=== PATIENT | male | born 1945 | race Caucasian/White ===

== ENCOUNTER 2017-03-16 19:05 | Inpatient (IN) | payer MEDICARE, OTHER, MEDICAID ==
[2017-03-16 20:10] LABS: HEMOGLOBIN 10.8 gm/dL (12-16); MEAN CELL VOLUME 89.3 fl (80-99); MEAN CORPUSCULAR HEMOGLOBIN 29.5 pg (27.0-31.0); MEAN CORPUSCULAR HGB CONC 33.1 pg (28.0-36.0); MEAN PLATELET VOLUME 7.4 fl; RED BLOOD COUNT 3.66 Mil/cmm (3.80-5.80); RED CELL DISTRIBUTION WIDTH 16.1 % (11.5-20.0)
[2017-03-16 20:20] LABS: WHITE BLOOD COUNT 69.7 Th/cmm (4.8-10.8)
[2017-03-16 20:21] LABS: HEMATOCRIT 32.7 % (41.0-60); PLATELET COUNT 128 Th/cmm (150-400)
[2017-03-16 20:22] LABS: ANION GAP 12.4 (7.0-16.0); BUN - UREA NITROGEN 13 mg/dL (7-25); CALCIUM SERUM 8.9 mg/dL (8.6-10.3); CARBON DIOXIDE 24.1 mEq/L (21.0-31.0); CHLORIDE 98 mEq/L (98-107); CREATININE - SERUM 0.7 mg/dL (0.7-1.3); GFR AFRICAN-AMERICAN > 60.0 ml/min (>90); GFR NON AFRICAN-AMERICAN > 60.0 ml/min; GLUCOSE 188 mg/dL (70-105); POTASSIUM SERUM 4.5 mEq/L (3.5-5.1); SODIUM SERUM 130 mEq/L (136-145)
[2017-03-16 20:29] LABS: URINE BILIRUBIN NEGATIVE (NEGATIVE); URINE BLOOD MODERATE (NEGATIVE); URINE GLUCOSE (UA) NEGATIVE (NEGATIVE); URINE KETONE TRACE mg/dL (NEGATIVE); URINE LEUKOCYTE ESTERASE NEGATIVE (NEGATIVE); URINE MICROSCOPIC INDICATED? YES; URINE NITRATE NEGATIVE (NEGATIVE); URINE PROTEIN TRACE mg/dL (NEGATIVE); URINE SOURCE MIDSTREAM; URINE UROBILINOGEN 0.2 E.U./dL (0.2 - 1.0)
--- NOTE | 2017-03-16 20:33 | ED Physician Chart ---
ED Chief Complaint/HPI - Patient Information Date Seen:: 03/16/17 Time Seen:: 19:10 Chief Complaint:: Agitation History of Present Illness:: onset x 3 days of agitation and aggressive behavior; no report of trauma, H/As, S/T, neck pain, C/P, SOB, Abd.Pain, A/N/V/D/C, fever, chills, urinary s/s, or SIs Allergies:: Allergies Allergy/AdvReac Type Severity Reaction Status Date / Time No Known Allergies Allergy Verified 03/16/17 20:01 Vitals:: Vital Signs - 8 hr 03/16/17 19:10 Temp 98.0 F HR 67 RR 18 BP 137/45 O2 Sat % 97 Historian:: Patient, EMS Review:: Nurse's Note Reviewed, Old Chart Reviewed, EMS run form Reviewed ED Review of Systems - Review of Systems General/Constitutional: No fever, No chills, No weight loss, No weakness, No diaphoresis, No edema, No loss of appetite Skin: No skin lesions, No rash, No bruising Head: No headache, No light-headedness Eyes: No loss of vision, No pain, No diplopia ENT: No earache, No nasal drainage, No sore throat, No tinnitus Neck: No neck pain, No swelling, No thyromegaly, No stiffness, No mass noted Cardio Vascular: No chest pain, No palpitations, No PND, No orthopnea, No edema Pulmonary: No SOB, No cough, No sputum, No wheezing GI: No nausea, No vomiting, No diarrhea, No pain, No melena, No hematochezia, No constipation, No hematemesis G/U: No dysuria, No frequency, No hematuria, No nacturia Musculoskeletal: No bone or joint pain, No back pain, No muscle pain Endocrine: No polyuria, No polydipsia Psychiatric: Prior psych history, Depression, No anxiety, No suicidal ideation, No homicidal ideation, Auditory hallucination, No visual hallucination Hematopoietic: No bruising, No lymphadenopathy Allergic/Immuno: No urticaria, No angioedema Neurological: No syncope, No focal symptoms, No weakness, No paresthesia, No headache, No seizure, No dizziness, No confusion, No vertigo ED Past Medical History - Past Medical History Obtainable: Yes Past Medical History: HTN, DM, Other (MS; Leukemia; Parkinson's Disease) Family History: Diabetes Melitus, HTN, Cancer Social History: Non Smoker, No Alcohol, No Drug Use, Single, Care Facility Surgical History: None Psychiatricy History: Depression, Schizophrenia Medication: Reviewed Family Medical History - Family Member Father History Unknown: Yes Ethnicity: Unknown Living Status: Unknown Hx Family Cancer: (Unknown) Hx Family Coronary Artery Disease: (Unknown) Hx Family Congestive Heart Failure: (Unknown) Hx Family Hypertension: (Unknown) Hx Family Stroke: (Unknown) Hx Family Diabetes: (Unknown) Hx Family Seizures: (Unknown) Hx Family Dementia: (Unknown) Hx Family AIDS: (Unknown) Hx Family COPD: (Unknown) Hx Family Hepatitis: (Unknown) Hx Family Psychiatric Problems: (Unknown) Hx Family Tuberculosis: (Unknown) ED Physical Exam - Physical Examination General/Constitutional: Awake, Well-developed, well-nourished, Alert, No distress, GCS 15, Non-toxic appearing, Ambulatory Head: Atraumatic Eyes: Lids, conjuctiva normal, PERRL, EOMI Skin: Nl inspection, No rash, No skin lesions, No ecchymosis, Well hydrated, No lymphadenopathy ENMT: External ears, nose nl, TM canals nl, Nasal exam nl, Lips, teeth, gums nl , Oropharynx nl, Tonsils nl Neck: Nontender, Full ROM w/o pain, No JVD, No nuchal rigidity, No bruit, No mass, No stridor Respiratory: Nl effort/Exclusion, Clear to Auscultation, No Wheeze/Rhonchi/Rales Cardio Vascular: RRR, No murmur, gallop, rubs, NL S1 S2, Carotid/Femoral/Distal pulses equal bilaterally GI: No tenderness/rebounding/guarding, No organomegaly, No hernia, Normal BS's, Nondistended, No mass/bruits, No McBurney tenderness : No CVA tenderness Extremities: No tenderness or effusion, Full ROM, normal strength in all extremities, No edema, Normal digits & nails Neuro/Psych: Alert/oriented, DTR's symmetric, Normal sensory exam, Normal motor strength, Judgement/insight normal, Mood normal, Normal gait, No focal deficits Other Neuro/Psych comments:: + Psychomotor Agitation; Mood/Affect: Stable; no SIs Misc: Normal back, No paraspinal tenderness ED Labs/Radiology/EKG Results - Lab Results Results: Laboratory Tests 03/16/17 19:59 WBC 69.7 H* D RBC 3.66 L Hgb 10.8 L Hct 32.7 L D MCV 89.3 MCH 29.5 MCHC Differential 33.1 RDW 16.1 Plt Count 128 L D MPV 7.4 Comments:: WBC: 69.7 due to Leukemia; H/H: + Anemia; - EKG Interpretations EKG Time:: 19:50 Rate & Rhythm: 67; NSR Comments:: LBBB; non-specific st-t changes ED Septic Shock - . Is Septic Shock (SBP<90, OR Lactate>4 mmol\L) present?: No - <6hrs of presentation: Vital Signs: Vital Signs - 8 hr 03/16/17 19:10 Temp 98.0 F HR 67 RR 18 BP 137/45 O2 Sat % 97 ED Reassessment (Disposition) - Reassessment Reassessment Condition:: Improved - Diagnosis Diagnosis:: Leukemia; Anemia; Schizophrenia; Depression; Bipolar Disorder; Agitation - Aftercare/Follow up Instructions Aftercare/Follow-Up Instructions:: Counseled pt regarding lab results/diagnosis & need follow up, Counseled pt & family regarding lab results/diagnosis & need follow up - Patient Disposition Discharge/Transfer:: Acute Care w/in this hosp Admitted to:: [facility] Condition at Disposition:: Stable, Improved
[2017-03-16 20:38] LABS: URINE CLARITY CLEAR (CLEAR); URINE COLOR YELLOW
[2017-03-16 20:39] LABS: URINE BACTERIA NONE SEEN /hpf (NONE SEEN); URINE EPITHELIAL CELLS NONE SEEN /lpf (FEW); URINE WBC 0-2 /hpf (0-5)
[2017-03-16 20:40] LABS: BAND NEUTROPHILE 0 % (0-10); NEUTROPHILS 6 % (40-80); TOTAL CELLS COUNTED 100
[2017-03-16 20:41] LABS: BASOPHIL 0 % (0-3); EOSINOPHIL 2 % (0-5); LYMPHOCYTE 90 % (20-50); MONOCYTE 2 % (2-10); PLATELET ESTIMATE ADEQUATE (NORMAL); PLATELET MORPHOLOGY NORMAL (NORMAL); POIKILOCYTOSIS 1+
[2017-03-16 20:42] LABS: ACANTHROCYTES 1+; BURR CELLS 1+; SCHISTOCYTES 1+
[2017-03-16 20:48] LABS: AMPHETAMINE URINE NEGATIVE (NEGATIVE); BARBITURATES URINE NEGATIVE (NEGATIVE); BENZODIAZEPINES QUAL URINE NEGATIVE (NEGATIVE); CANNABINOID THC NEGATIVE (NEGATIVE); COCAINE METABOLITE QUAL URINE NEGATIVE (NEGATIVE); METHADONE URINE NEGATIVE (NEGATIVE); METHAMPHETAMINES QUAL URINE NEGATIVE (NEGATIVE); OPIATES (MORPHINE) QUAL. URINE NEGATIVE (NEGATIVE); PHENCYCLIDINE (PCP) URINE NEGATIVE (NEGATIVE); TRICYCLICS (TCA) QUAL. URINE NEGATIVE (NEGATIVE)
[2017-03-16 21:26] LABS: A1C % 9.3 % (4.0-6.0)
[2017-03-17 00:17] VITALS: BP 148/65
[2017-03-17] MEDS ORDERED: Maalox 30 mL Cup PO PRN (00:20)
[2017-03-17] MEDS ORDERED: Magnesium Hydroxide (MOM) 30 mL UDC PO PRN (00:20)
[2017-03-17] MEDS: Atorvastatin Calcium 10 MG TAB PO SCH (09:39)
[2017-03-17] MEDS: Benztropine 1 MG TAB PO SCH (09:40)
--- NOTE | 2017-03-17 16:09 | History & Physical ---
ADMIT DATE: 03/16/2017 INTERNAL MEDICINE CONSULTATION The patient is a 71-year-old male admitted to [facility] unit. PAST MEDICAL HISTORY: Significant for hypertension, CHF, coronary artery disease, history of CVA, peptic ulcer disease ____ arthritis, seizure disorder and psychosis. SOCIAL HISTORY: No documented smoking or alcohol abuse. FAMILY HISTORY: Not available. REVIEW OF SYSTEMS: The patient is very depressed and confused. Has had no recent seizure activity, no fever. PHYSICAL EXAMINATION: GENERAL: Average male, in no obvious respiratory distress. VITAL SIGNS: Include a blood pressure of 140/80, heart 80 and respiration rate of 18. SKIN: Show no obvious cellulitis. HEENT: Normal conjunctivae. NECK: Supple. LUNGS: Clear. HEART: First and second present. ABDOMEN: Soft, minimal epigastric tenderness. Bowel sounds appeared good. EXTREMITIES: Show arthritis. NEUROLOGIC: The patient is awake. LABORATORY DATA: Include white count 69.7, hemoglobin 10.8, hematocrit 32.7 and platelet count of 128. Sodium 130, potassium 4.5, chloride 98, bicarbonate 24.1, BUN 13 and creatinine 0.7. Glucose of 188. Hemoglobin A1c of 9.3. ADMITTING DIAGNOSES: Include leukocytosis, rule out underlying infection versus leukemia; hypertension; congestive heart failure; coronary artery disease; history of cerebrovascular accident; peptic ulcer disease; arthritis; seizure disorder; psychosis and diabetes mellitus. LABORATORY DATA: Will have a repeat stat CBC. CURRENT MEDICINES: Include Coreg, Plavix, Depakote, Aricept, Pepcid, Keppra, Ativan, milk of magnesia and Namenda. The patient is on Glucophage, Nitrostat p.r.n., Protonix, Lyrica and Ambien. JOB# [id number]
--- NOTE | 2017-03-17 22:14 | Psychosocial Evaluation ---
DATE OF SERVICE: 03/16/2017 IDENTIFYING DATA: The patient is a 71-year-old male, resident of [facility]. Information is obtained by directly interviewing the patient as well as reviewing the admission papers and they are reliable. JUSTIFICATION OF HOSPITALIZATION: The patient is admitted here on a voluntary basis in view of his acute depression. CHIEF COMPLAINT: "I am feeling very depressed. I do not know what to do." HISTORY OF PRESENT ILLNESS: This is one of multiple psychiatric hospitalizations for this patient who was hospitalized under my care in 2014. The patient has been diagnosed to have schizoaffective disorder and currently at [facility], but the patient has been feeling acutely depressed and is feeling helpless and hopeless and is stating that the place is not as sanitary and he does not want to go there and the patient has been getting easily upset and getting agitated and hence he has been referred over here for stabilization. PAST PSYCHIATRIC HISTORY: Please refer to the above. PHYSICAL EXAMINATION: Requested to be done by Dr. Celis. SUBSTANCE ABUSE HISTORY: None. PHYSICAL OR SEXUAL ABUSE HISTORY: None. SOCIAL HISTORY: The patient is a resident of [facility]. The patient is reporting that he used to work at [employer] and he lost his son in 1998 because of a motor vehicle accident and he has no one left. The patient is feeling helpless and hopeless and is stating that he is going to be 72 and he cannot be moved to [address]. The patient at this time is on Remeron and Depakote and on Seroquel. The patient is reported to have been compliant with the medication. The patient is getting Depakote 500 mg 3 times a day and the Depakote level is noted to be high at 122 and hence it is going to be decreased. The patient is also getting the Namenda and Aricept. MENTAL STATUS EXAMINATION: The patient is a 71-year-old, looking his stated age, thin built, superficially cooperative. Eye contact is poor. Mood is depressed. Affect is constricted. The patient denies any command hallucinations, but the patient has paranoia. Insight and judgment at this time are impaired. Impulse control is noted to be poor. The patient has been having difficult time to cope with the stress. The patient is not presenting with any threats to harm self or others, but the patient is having difficult time to cope with the stress. DIAGNOSTIC IMPRESSION: AXIS I: Schizoaffective disorder. AXIS II: None. AXIS III: As per Dr. Celis. IMMEDIATE TREATMENT PLAN: The patient is going to be observed on the inpatient unit and provided with supportive psychotherapy. The patient is going to be continued on the Depakote, Namenda, Aricept, and mirtazapine 15 mg at bedtime and the antidepressant is going to be slowly adjusted. ESTIMATED LENGTH OF STAY: Three to five days. DISCHARGE CRITERIA: When he is no longer a threat to self or others and be able to cope up with the stress. [facility]# [id number]
[2017-03-18] MEDS: Atorvastatin Calcium 10 MG TAB PO SCH (09:00)
[2017-03-18] MEDS: Benztropine 1 MG TAB PO SCH (09:02)
[2017-03-18] MEDS: Pantoprazole 40 mg EC Tab PO SCH (11:55)
--- NOTE | 2017-03-18 16:42 | Progress Notes ---
DATE: 03/18/2017 SUBJECTIVE: Staff was spoken to. The patient is interviewed. Mood is noted to be irritable. Affect is constricted. Insight and judgment at this time are noted to be still impaired. Impulse control is noted to be limited. The patient has been having difficult time to cope with the stress. The patient is still insisting that he would be better off rather than be alive. The patient has been displaying very poor coping skills. In view of this one, it is decided to add 2 mg of the Abilify as an antidepressant and continue the patient with Remeron and follow him up with supportive therapy. ASSESSMENT: The patient is still depressed and suicidal. PLAN: To continue the patient with the supportive therapy and follow up. [facility]# [id number]
--- NOTE | 2017-03-19 07:11 | Consultation ---
DATE OF CONSULTATION: 03/18/2017 HEMATOLOGY ONCOLOGY CONSULTATION REFERRED BY: Dr. Celis. REASON FOR CONSULTATION: Leukemia. HISTORY OF PRESENT ILLNESS: The patient is a 71-year-old male, who was seen in the [facility] unit. The patient was found to have persistent elevation of the WBC count, which was predominantly lymphocytes. Therefore, I was asked to evaluate. PAST MEDICAL HISTORY: Hypertension, coronary artery disease, CVA, peptic ulcer disease, seizure disorder, psychosis. MEDICATIONS: Reviewed. SOCIAL HISTORY: No smoking or drinking. PHYSICAL EXAMINATION: GENERAL: The patient is awake, not in distress. VITAL SIGNS: Stable, somewhat anxious. HEENT: Atraumatic. NECK: Supple. CHEST: Clear. ABDOMEN: Soft. No organomegaly. EXTREMITIES: No edema. No peripheral lymphadenopathy. LABORATORY DATA: White count 69,700, platelets 128, hemoglobin 10.8, lymphocytes 90%, creatinine 0.7. ASSESSMENT AND RECOMMENDATIONS: Leukocytosis, predominantly lymphocytosis; it dates back 2014. This most likely chronic lymphocytic leukemia. I will obtain leukemia lymphoma flow cytometry panel and if confirmed, I will obtain FISH panel for CLL prognostic panel. No intervention is required at this time. Based on the result, the patient further workup with a CT scan will be outlined. Thank you, Dr. Celis, for the opportunity to participate in the care of this interesting case JOB# [id number]
[2017-03-19] MEDS: Benztropine 1 MG TAB PO SCH (09:21)
[2017-03-19] MEDS: Atorvastatin Calcium 10 MG TAB PO SCH (09:21)
[2017-03-19] MEDS: Pantoprazole 40 mg EC Tab PO SCH (09:26)
[2017-03-19] MEDS ORDERED: Albuterol Nebulizer 2.5mg/3mL HHN PRN (11:00)
--- NOTE | 2017-03-20 07:55 | Consultation ---
DATE OF CONSULTATION: 03/18/2017 REQUESTING PHYSICIAN: Karla Coffey M.D. CONSULTING PSYCHOLOGIST: Johnny Spivey, Ph.D. TYPE OF CONSULTATION: Psychology Evaluation. HISTORY OF PRESENT ILLNESS: The following is by review of the medical record as well as by patient's self report. According to record review, the patient is a 71-year-old male who is a resident of [facility]. The patient is being admitted on a voluntary basis for acute depression. The patient has been seen in the past and had a previous hospitalization in 2014. The patient has a history of schizoaffective disorder. Upon interview, the patient states that he is not experiencing suicidal ideation with any plan or intention. However, the patient admits that he feels very depressed and helpless as well as hopeless. The patient states that he is unhappy at his placement. The patient seems to be getting easily upset when discussing his placement with this provider but the patient seems to be motivated for treatment. PAST PSYCHIATRIC HISTORY: History of schizoaffective disorder, depressed. PAST MEDICAL HISTORY: Please see history and physical by Dr. Celis. SUBSTANCE ABUSE HISTORY: The patient denied any history. The record indicates no history. MEDICATIONS: Please see medication reconciliation sheet. PSYCHOSOCIAL HISTORY: The patient states that he is a resident at [facility]. The patient states he used to work at [employer]. He reports that he lost his son in 1998 due to a motor vehicle accident and has no other family. The patient states that he is a high school graduate with some college. The patient states that he is Religious. The patient did not answer any other questions regarding family history. The patient denied any abuse history or legal problems. The patient states that he is seeking transfer to another custodial facility because he feels his current placement is unsanitary. MENTAL STATUS EXAMINATION: The patient appears to be his stated age. The patient's attitude is cooperative. Eye contact is poor. Speech is spontaneous. Mood is severely depressed. Affect is sullen. Thought process seems to be depressogenic. The patient did report some anxiety. The patient denies any auditory or visual hallucinations; however, the patient has some paranoid ideation and suspiciousness. The patient's behavior has been redirectable on the unit according to staff here. Impulse control is fair to poor. Concentration is fair to poor. The patient was able to perform serial 3 subtractions with one mistake but was unable to correct that mistake. The patient verbalized hopelessness and helplessness as well as anhedonia. The patient did not participate in the memory evaluation. Immediate memory seems to be intact. Short-term and long-term memory need further evaluation, but seemed to be grossly intact. Sensorium is alert and oriented to person and place, but not date or time. The patient answered 1/3 interpretation of proverbs which was superficial, but somewhat logical. Insight is poor. Judgment is compromised. DIAGNOSTIC IMPRESSION: AXIS I: History of schizoaffective disorder, depressed. AXIS II: Deferred. AXIS III: Please see history and physical per Dr. Celis. TREATMENT PLAN: The patient has been seen by Dr. Coffey for psychiatric evaluation and for the management of the patient's psychotropic medications. We will provide supportive psychotherapy as well as motivational enhancement for the patient to become compliant with all aspects of his care and treatment plan. We will provide cognitive behavioral therapy to reduce the patient's depression. The patient is continued on Depakote, Namenda, Aricept, and mirtazapine 15 mg at bedtime according to Dr. Coffey. We will provide coping strategies for phase of life issues. We will provide bereavement therapy with respect to the patient's loss of his son 18 years ago. The patient will be monitored closely. We will provide stress management as well as frustration tolerance, so that the patient can demonstrate improved ability to cope with stress. network services project manager will provide discussion regarding options for the patient's return to his custodial facility or possibly another placement. Thank you, Dr. Coffey for this consult and the opportunity to participate with you and your patient's care. JOB# [id number] DAVE
[2017-03-20] MEDS: Atorvastatin Calcium 10 MG TAB PO SCH (08:16)
[2017-03-20] MEDS: Benztropine 1 MG TAB PO SCH (08:16)
[2017-03-20] MEDS: Pantoprazole 40 mg EC Tab PO SCH (09:51)
--- NOTE | 2017-03-20 16:40 | General Progress Note ---
Subjective - Review of Systems Service Date: 03/20/17 Objective - Results Result Diagrams: 03/16/17 19:59 03/16/17 19:59 Recent Labs: Laboratory Last Values WBC 69.7 Th/cmm (4.8-10.8) H* D 03/16/17 19:59 RBC 3.66 Mil/cmm (3.80-5.80) L 03/16/17 19:59 Hgb 10.8 gm/dL (12-16) L 03/16/17 19:59 Hct 32.7 % (41.0-60) L D 03/16/17 19:59 MCV 89.3 fl (80-99) 03/16/17 19:59 MCH 29.5 pg (27.0-31.0) 03/16/17 19:59 MCHC Differential 33.1 pg (28.0-36.0) 03/16/17 19:59 RDW 16.1 % (11.5-20.0) 03/16/17 19:59 Plt Count 128 Th/cmm (150-400) L D 03/16/17 19:59 MPV 7.4 fl 03/16/17 19:59 Band Neutrophils % 0 % (0-10) 03/16/17 19:59 Neutrophils (Manual) 6 % (40-80) L 03/16/17 19:59 Lymphocytes 90 % (20-50) H 03/16/17 19:59 Monocytes 2 % (2-10) 03/16/17 19:59 Eosinophils 2 % (0-5) 03/16/17 19:59 Basophils 0 % (0-3) 03/16/17 19:59 Platelet Estimate ADEQUATE (NORMAL) 03/16/17 19:59 Platelet Morphology NORMAL (NORMAL) 03/16/17 19:59 Poikilocytosis 1+ 03/16/17 19:59 [place] Cells 1+ 03/16/17 19:59 Acanthocytes (Spur) 1+ 03/16/17 19:59 Schistocytes 1+ 03/16/17 19:59 RBC Morph Micro Appear ABNORMAL (NORMAL) 03/16/17 19:59 Sodium 130 mEq/L (136-145) L 03/16/17 19:59 Potassium 4.5 mEq/L (3.5-5.1) 03/16/17 19:59 Chloride 98 mEq/L (98-107) 03/16/17 19:59 Carbon Dioxide 24.1 mEq/L (21.0-31.0) 03/16/17 19:59 Anion Gap 12.4 (7.0-16.0) 03/16/17 19:59 BUN 13 mg/dL (7-25) 03/16/17 19:59 Creatinine 0.7 mg/dL (0.7-1.3) 03/16/17 19:59 Est GFR ( Amer) > 60.0 ml/min (>90) 03/16/17 19:59 Est GFR (Non-Af Amer) > 60.0 ml/min 03/16/17 19:59 BUN/Creatinine Ratio 18.6 03/16/17 19:59 Glucose 188 mg/dL (70-105) H 03/16/17 19:59 Hemoglobin A1c % 9.3 % (4.0-6.0) H 03/16/17 19:59 Whole Bld Lactic Acid 2.19 mmol/L (0.60-1.99) H* 03/16/17 22:50 Uric Acid 4.6 mg/dL (4.4-7.6) 03/18/17 16:47 Calcium 8.9 mg/dL (8.6-10.3) 03/16/17 19:59 TSH 2.98 uIU/ml (0.34-5.60) 03/16/17 19:59 Urine Source MIDSTREAM 03/16/17 19:25 Urine Color YELLOW 03/16/17 19:25 Urine Clarity CLEAR (CLEAR) 03/16/17 19:25 Urine pH 6.0 (4.6 - 8.0) 03/16/17 19:25 Ur Specific [place] >= 1.030 (1.005-1.030) 03/16/17 19:25 Urine Protein TRACE mg/dL (NEGATIVE) 03/16/17 19:25 Urine Glucose (UA) NEGATIVE mg/dL (NEGATIVE) 03/16/17 19:25 Urine Ketones TRACE mg/dL (NEGATIVE) 03/16/17 19:25 Urine Blood MODERATE (NEGATIVE) H 03/16/17 19:25 Urine Nitrate NEGATIVE (NEGATIVE) 03/16/17 19:25 Urine Bilirubin NEGATIVE (NEGATIVE) 03/16/17 19:25 Urine Urobilinogen 0.2 E.U./dL (0.2 - 1.0) 03/16/17 19:25 Ur Leukocyte Esterase NEGATIVE (NEGATIVE) 03/16/17 19:25 Urine RBC 5-10 /hpf (0-5) H 03/16/17 19:25 Urine WBC 0-2 /hpf (0-5) 03/16/17 19:25 Ur Epithelial Cells NONE SEEN /lpf (FEW) 03/16/17 19:25 Urine Bacteria NONE SEEN /hpf (NONE SEEN) 03/16/17 19:25 Urine Opiates Screen NEGATIVE (NEGATIVE) 03/16/17 19:25 Urine Methadone Screen NEGATIVE (NEGATIVE) 03/16/17 19:25 Ur Barbiturates Screen NEGATIVE (NEGATIVE) 03/16/17 19:25 Valproic Acid 75.1 ug/mL (50.0-100.0) 03/18/17 16:47 Ur Tricyclics Screen NEGATIVE (NEGATIVE) 03/16/17 19:25 Levetiracetam 26.1 ug/mL (10.0-40.0) 03/16/17 19:59 Ur Phencyclidine Scrn NEGATIVE (NEGATIVE) 03/16/17 19:25 Amphetamines Screen NEGATIVE (NEGATIVE) 03/16/17 19:25 U Methamphetamines Scrn NEGATIVE (NEGATIVE) 03/16/17 19:25 U Benzodiazepines Scrn NEGATIVE (NEGATIVE) 03/16/17 19:25 U Cocaine Metab Screen NEGATIVE (NEGATIVE) 03/16/17 19:25 U Cannabinoids Screen NEGATIVE (NEGATIVE) 03/16/17 19:25 - Physical Exam Vitals and I&O: Vital Signs Temp 97.2 F 03/20/17 16:27 Pulse 62 03/20/17 16:27 Resp 18 03/20/17 16:27 BP 113/61 03/20/17 16:27 Pulse Ox 98 03/20/17 16:27 Intake & Output 03/19/17 03/20/17 03/20/17 18:59 06:59 18:59 Intake Total 1000 120 240 Balance 1000 120 240 Intake: Oral 1000 120 240 Other: # Voids 3 3 1 Stool Characteristics Soft Formed Active Medications: Current Medications Acetaminophen (Tylenol) 650 mg PO Q4HR PRN PRN Reason: Mild Pain / Temp above 100 Stop: 05/16/17 00:19 Al Hydrox/Mg Hydrox/Simethicone (Maalox) 30 ml PO Q4HR PRN PRN Reason: GI DISTRESS Stop: 05/16/17 00:19 Albuterol Sulfate (Albuterol 2.5mg/3ml Neb Ud) 2.5 mg HHN Q4HRT PRN PRN Reason: Wheezing Stop: 05/18/17 10:59 Aripiprazole (Abilify) 2 mg PO DAILY [facility] PRN Reason: Protocol Stop: 05/17/17 08:59 Last Admin: 03/20/17 08:14 Dose: 2 mg Aspirin (Ecotrin) 81 mg PO DAILY [facility] Stop: 05/16/17 08:59 Last Admin: 03/20/17 08:14 Dose: 81 mg Atorvastatin Calcium (Lipitor) 40 mg PO DAILY [facility] Stop: 05/16/17 08:59 Last Admin: 03/20/17 08:16 Dose: 40 mg Benazepril HCl (Lotensin) 5 mg PO DAILY [facility] Stop: 05/16/17 08:59 Last Admin: 03/20/17 08:15 Dose: 5 mg Benztropine Mesylate (Cogentin) 2 mg PO DAILY [facility] Stop: 05/16/17 08:59 Last Admin: 03/20/17 08:16 Dose: 2 mg Carvedilol (Coreg) 6.25 mg PO BID [facility] Stop: 05/16/17 08:59 Last Admin: 03/20/17 08:14 Dose: 6.25 mg Clopidogrel Bisulfate (Plavix) 75 mg PO DAILY [facility] Stop: 05/16/17 08:59 Last Admin: 03/20/17 08:30 Dose: 75 mg Divalproex Sodium (Depakote Dr) 500 mg PO BID [facility] PRN Reason: Protocol Stop: 05/16/17 16:59 Last Admin: 03/20/17 08:15 Dose: 500 mg Donepezil HCl (Aricept) 10 mg PO HS [facility] Stop: 05/16/17 20:59 Last Admin: 03/19/17 21:05 Dose: 10 mg Famotidine (Pepcid) 20 mg PO BID [facility] Stop: 05/16/17 08:59 Last Admin: 03/20/17 09:50 Dose: 20 mg Levetiracetam (Keppra) 500 mg PO BID [facility] Stop: 05/16/17 08:59 Last Admin: 03/20/17 09:49 Dose: 500 mg Lorazepam (Ativan) 0.5 mg PO Q4HR PRN; Protocol PRN Reason: Anxiety Stop: 04/16/17 00:19 Magnesium Hydroxide (Milk Of Magnesia) 30 ml PO HS PRN PRN Reason: Constipation Memantine (Namenda) 10 mg PO DAILY [facility] Stop: 05/16/17 08:59 Last Admin: 03/20/17 09:49 Dose: 10 mg Metformin HCl (Glucophage) 850 mg PO BIDWM [facility] Stop: 05/16/17 07:59 Last Admin: 03/20/17 08:20 Dose: 850 mg Mirtazapine (Remeron) 15 mg PO HS [facility] PRN Reason: Protocol Stop: 05/16/17 20:59 Last Admin: 03/19/17 21:05 Dose: 15 mg Miscellaneous (Pimavanserin Tartrate [Nuplazid]) 17 mg PO DAILY [facility] Stop: 05/16/17 08:59 Miscellaneous (Umeclidinium Brm/Vilanterol Tr [Anoro Ellipta 62.5-25 Mcg Inh]) 1 puff IH DAILY [facility] Stop: 05/16/17 08:59 Nitroglycerin (Nitrostat) 0.4 mg SL Q5MIN PRN PRN Reason: Chest Pain Stop: 05/16/17 00:24 Ondansetron HCl (Zofran Odt) 4 mg PO Q6H PRN PRN Reason: Nausea / Vomiting Pantoprazole Sodium (Protonix) 40 mg PO DAILY [facility] Stop: 05/17/17 11:59 Last Admin: 03/20/17 09:51 Dose: 40 mg Pregabalin (Lyrica) 75 mg PO BID [facility] Stop: 05/16/17 08:59 Last Admin: 03/20/17 09:49 Dose: 75 mg Zolpidem Tartrate (Ambien) 5 mg PO HS PRN PRN Reason: Insomnia Stop: 05/16/17 00:19 Last Admin: 03/19/17 21:09 Dose: 5 mg - Procedures Procedures: Procedures Procedure Code Date OTHER GROUP THERAPY 94.44 05/31/14 RECREATIONAL THERAPY 93.81 03/08/07 Assessment/Plan - Problem List Patient Problems: All Active Problems Agitation (Acute) R45.1 Depressive disorder (Acute) F32.9 Diabetes (Acute) E11.9 Hypertension (Acute) I10 Schizoaffective disorder (Acute) F25.9 - Assessment Assessment: * Likely chronic lymphocytic leukemia Follow Flowcytometry report Monitor cbc Nutritional Asmnt/Malnutr-PDOC - Dietary Evaluation Malnutrition Findings (Please click <Entered> for more info): Nutritional Asmnt/Malnutrition Start: 03/17/17 13: 13 Text: Status: Complete Freq: Document 03/17/17 13:13 [facility] (Rec: 03/17/17 13:31 [facility] [email or web address]) Nutritional Asmnt/Malnutrition Patient General Information Nutritional Screening High Risk Diagnosis leukemia, anemia, schizophrenia, depression, bipolar, agitaion Pertinent Medical Hx/Surgical Hx HTN, DM, Leukemia, parkinson's disease, depression , schizophrenia Subjective Information Pt seen sitting on bed working on lunch. Pt stated good appetite, like the food. Current Diet Order/ Nutrition Support mech soft chopped, MARCIAL, CCHO Pertinent Medications glucophage, remeron, protonix Pertinent Labs 03/16 Na 130, K 4.5, Cl 98, BUN 13, Cr 0.7, Glucose 188, A1c 9.3 Nutritional Hx/Data Height 1.78 m Height (Calculated Centimeters) 177.8 Current Weight (lbs) 77.111 kg Weight (Calculated Kilograms) 77.1 Weight (Calculated Grams) 03936.7 [place] Body Weight 166 % [place] Body Weight 102 Body Mass Index (BMI) 24.3 Weight Status Approriate GI Symptoms GI Symptoms None Last BM 03/17 Difficult in: None Skin Integrity/Comment: intact Estimated Nutritional Goals BEE in Kcals: Using Current wt Calories/Kcals/Kg 25-30 Kcals Calculated 2525-1118 Protein: Using Current wt Protein g/k Protein Calculated 77 Fluid: ml 1925-2310ml (1ml/kcal) Nutritional Problem 1. Problem Problem altered nutrition related lab values Etiology hx of DM Signs/Symptoms: Glucose 188, A1c 9.3 Malnutrition Alert Protein-Calorie Malnutrition N/A Is there a minimum of two criteria No selected? Query Text:Check all the applicable criteria. A minimum of two criteria are recommended for diagnosis of either severe or non-severe malnutrition. Intervention/Recommendation Comments 1. Continue with current diet as ordered. Explained [facility] [place] diet to pt. Pt receiptive, will follow it, no more question or concern. 2. Monitor PO intake, wt, labs and skin integrity 3. F/U as moderate risk in 3-5 days, 03/20-03/22 Expected Outcomes/Goals Expected Outcomes/Goals 1. PO intake to meet at least 75% of nutritional needs. 2. Wt stability, skin to remain intact, labs to improve
--- NOTE | 2017-03-20 20:38 | Progress Notes ---
DATE: 03/20/2017 Staff was spoken to. The patient is interviewed. Mood is noted to be depressed. Affect is constricted. The patient is isolative and withdrawn. The patient's coping skills are noted to be very poor. The patient is reporting that he has been having a little bit of stomach upset. Other than that, the patient is stating that he has been trying his best. No side effects to the medications are noted at this time. The patient has been placed on Abilify to augment the antidepressant effect and the patient is going to be closely monitored. The patient is still suicidal and is not ready to be discharged to a lower level of care yet. JOB# [id number]
--- NOTE | 2017-03-20 20:40 | Progress Notes ---
DATE: 03/19/2017 CHIEF COMPLAINT: Psychotic illness. SUBJECTIVE: The patient was seen, discussed with staff. Remains irritable and labile ____. The patient continues to have some anger outburst for no apparent reason. The patient on the other hand is taking his medications. MENTAL STATUS EXAM: Speech fluent, not pressured. Affect remains depressed, labile, still with some paranoia. ASSESSMENT: The patient continues to require inpatient hospitalization, continue to stabilize the same. PLAN: Continue Maryann. JOB# [id number]
[2017-03-21 08:06] LABS: EOSINOPHILE ABSOLUTE 0.1 Th/cmm (0.1-0.4); HEMATOCRIT 29.9 % (41.0-60); HEMOGLOBIN 10.1 gm/dL (12-16); LYMPHOCYTE ABSOLUTE 40.3 Th/cmm (1.5-3.0); MEAN CELL VOLUME 86.7 fl (80-99); MEAN CORPUSCULAR HEMOGLOBIN 29.2 pg (27.0-31.0); MEAN CORPUSCULAR HGB CONC 33.7 pg (28.0-36.0); MEAN PLATELET VOLUME 7.9 fl; MONOCYTE ABSOLUTE 3.7 Th/cmm (0.3-1.0); NEUTROPHILE ABSOLUTE 2.7 Th/cmm (1.8-8.0); RED BLOOD COUNT 3.45 Mil/cmm (3.80-5.80)
[2017-03-21 08:19] LABS: WHITE BLOOD COUNT 46.8 Th/cmm (4.8-10.8)
[2017-03-21 08:20] LABS: PLATELET COUNT 88 Th/cmm (150-400)
[2017-03-21 09:18] LABS: LYMPHOCYTE 90 % (20-50); MONOCYTE 3 % (2-10); NEUTROPHILS 7 % (40-80); PLATELET ESTIMATE SLIGHT DECREASED (NORMAL); TOTAL CELLS COUNTED 100
[2017-03-21] MEDS: Atorvastatin Calcium 10 MG TAB PO SCH (09:27)
[2017-03-21] MEDS: Benztropine 1 MG TAB PO SCH (09:29)
[2017-03-21] MEDS: Pantoprazole 40 mg EC Tab PO SCH (09:34)
--- NOTE | 2017-03-21 10:09 | General Progress Note ---
Subjective - Review of Systems Service Date: 03/21/17 Objective - Results Result Diagrams: 03/21/17 07:10 03/16/17 19:59 Recent Labs: Laboratory Last Values WBC 46.8 Th/cmm (4.8-10.8) H* D 03/21/17 07:10 RBC 3.45 Mil/cmm (3.80-5.80) L 03/21/17 07:10 Hgb 10.1 gm/dL (12-16) L 03/21/17 07:10 Hct 29.9 % (41.0-60) L 03/21/17 07:10 MCV 86.7 fl (80-99) 03/21/17 07:10 MCH 29.2 pg (27.0-31.0) 03/21/17 07:10 MCHC Differential 33.7 pg (28.0-36.0) 03/21/17 07:10 RDW 16.0 % (11.5-20.0) 03/21/17 07:10 Plt Count 88 Th/cmm (150-400) L D 03/21/17 07:10 MPV 7.9 fl 03/21/17 07:10 Band Neutrophils % 0 % (0-10) 03/16/17 19:59 Neutrophils (Manual) 7 % (40-80) L 03/21/17 07:10 Lymphocytes 90 % (20-50) H 03/21/17 07:10 Monocytes 3 % (2-10) 03/21/17 07:10 Eosinophils 2 % (0-5) 03/16/17 19:59 Basophils 0 % (0-3) 03/16/17 19:59 Platelet Estimate SLIGHT DECREASED (NORMAL) 03/21/17 07:10 Platelet Morphology NORMAL (NORMAL) 03/16/17 19:59 Poikilocytosis 1+ 03/16/17 19:59 [place] Cells 1+ 03/16/17 19:59 Acanthocytes (Spur) 1+ 03/16/17 19:59 Schistocytes 1+ 03/16/17 19:59 RBC Morph Micro Appear ABNORMAL (NORMAL) 03/16/17 19:59 Sodium 130 mEq/L (136-145) L 03/16/17 19:59 Potassium 4.5 mEq/L (3.5-5.1) 03/16/17 19:59 Chloride 98 mEq/L (98-107) 03/16/17 19:59 Carbon Dioxide 24.1 mEq/L (21.0-31.0) 03/16/17 19:59 Anion Gap 12.4 (7.0-16.0) 03/16/17 19:59 BUN 13 mg/dL (7-25) 03/16/17 19:59 Creatinine 0.7 mg/dL (0.7-1.3) 03/16/17 19:59 Est GFR ( Amer) > 60.0 ml/min (>90) 03/16/17 19:59 Est GFR (Non-Af Amer) > 60.0 ml/min 03/16/17 19:59 BUN/Creatinine Ratio 18.6 03/16/17 19:59 Glucose 188 mg/dL (70-105) H 03/16/17 19:59 Hemoglobin A1c % 9.3 % (4.0-6.0) H 03/16/17 19:59 Whole Bld Lactic Acid 2.19 mmol/L (0.60-1.99) H* 03/16/17 22:50 Uric Acid 4.6 mg/dL (4.4-7.6) 03/18/17 16:47 Calcium 8.9 mg/dL (8.6-10.3) 03/16/17 19:59 TSH 2.98 uIU/ml (0.34-5.60) 03/16/17 19:59 Urine Source MIDSTREAM 03/16/17 19:25 Urine Color YELLOW 03/16/17 19:25 Urine Clarity CLEAR (CLEAR) 03/16/17 19:25 Urine pH 6.0 (4.6 - 8.0) 03/16/17 19:25 Ur Specific [place] >= 1.030 (1.005-1.030) 03/16/17 19:25 Urine Protein TRACE mg/dL (NEGATIVE) 03/16/17 19:25 Urine Glucose (UA) NEGATIVE mg/dL (NEGATIVE) 03/16/17 19:25 Urine Ketones TRACE mg/dL (NEGATIVE) 03/16/17 19:25 Urine Blood MODERATE (NEGATIVE) H 03/16/17 19:25 Urine Nitrate NEGATIVE (NEGATIVE) 03/16/17 19:25 Urine Bilirubin NEGATIVE (NEGATIVE) 03/16/17 19:25 Urine Urobilinogen 0.2 E.U./dL (0.2 - 1.0) 03/16/17 19:25 Ur Leukocyte Esterase NEGATIVE (NEGATIVE) 03/16/17 19:25 Urine RBC 5-10 /hpf (0-5) H 03/16/17 19:25 Urine WBC 0-2 /hpf (0-5) 03/16/17 19:25 Ur Epithelial Cells NONE SEEN /lpf (FEW) 03/16/17 19:25 Urine Bacteria NONE SEEN /hpf (NONE SEEN) 03/16/17 19:25 Urine Opiates Screen NEGATIVE (NEGATIVE) 03/16/17 19:25 Urine Methadone Screen NEGATIVE (NEGATIVE) 03/16/17 19:25 Ur Barbiturates Screen NEGATIVE (NEGATIVE) 03/16/17 19:25 Valproic Acid 75.1 ug/mL (50.0-100.0) 03/18/17 16:47 Ur Tricyclics Screen NEGATIVE (NEGATIVE) 03/16/17 19:25 Levetiracetam 26.1 ug/mL (10.0-40.0) 03/16/17 19:59 Ur Phencyclidine Scrn NEGATIVE (NEGATIVE) 03/16/17 19:25 Amphetamines Screen NEGATIVE (NEGATIVE) 03/16/17 19:25 U Methamphetamines Scrn NEGATIVE (NEGATIVE) 03/16/17 19:25 U Benzodiazepines Scrn NEGATIVE (NEGATIVE) 03/16/17 19:25 U Cocaine Metab Screen NEGATIVE (NEGATIVE) 03/16/17 19:25 U Cannabinoids Screen NEGATIVE (NEGATIVE) 03/16/17 19:25 - Physical Exam Vitals and I&O: Vital Signs Temp 98.4 F 03/21/17 06:30 Pulse 69 03/21/17 06:30 Resp 18 03/21/17 06:30 BP 143/59 03/21/17 06:30 Pulse Ox 97 03/21/17 06:30 Intake & Output 03/20/17 03/21/17 03/21/17 18:59 06:59 18:59 Intake Total 1340 480 Balance 1340 480 Intake: Oral 1340 480 Other: # Voids 3 1 # Bowel Movements 1 Active Medications: Current Medications Acetaminophen (Tylenol) 650 mg PO Q4HR PRN PRN Reason: Mild Pain / Temp above 100 Stop: 05/16/17 00:19 Al Hydrox/Mg Hydrox/Simethicone (Maalox) 30 ml PO Q4HR PRN PRN Reason: GI DISTRESS Stop: 05/16/17 00:19 Albuterol Sulfate (Albuterol 2.5mg/3ml Neb Ud) 2.5 mg HHN Q4HRT PRN PRN Reason: Wheezing Stop: 05/18/17 10:59 Aripiprazole (Abilify) 2 mg PO DAILY [facility] PRN Reason: Protocol Stop: 05/17/17 08:59 Last Admin: 03/20/17 08:14 Dose: 2 mg Aspirin (Ecotrin) 81 mg PO DAILY [facility] Stop: 05/16/17 08:59 Last Admin: 03/20/17 08:14 Dose: 81 mg Atorvastatin Calcium (Lipitor) 40 mg PO DAILY [facility] Stop: 05/16/17 08:59 Last Admin: 03/20/17 08:16 Dose: 40 mg Benazepril HCl (Lotensin) 5 mg PO DAILY [facility] Stop: 05/16/17 08:59 Last Admin: 03/20/17 08:15 Dose: 5 mg Benztropine Mesylate (Cogentin) 2 mg PO DAILY [facility] Stop: 05/16/17 08:59 Last Admin: 03/20/17 08:16 Dose: 2 mg Carvedilol (Coreg) 6.25 mg PO BID [facility] Stop: 05/16/17 08:59 Last Admin: 03/20/17 17:31 Dose: 6.25 mg Clopidogrel Bisulfate (Plavix) 75 mg PO DAILY [facility] Stop: 05/16/17 08:59 Last Admin: 03/20/17 08:30 Dose: 75 mg Divalproex Sodium (Depakote Dr) 500 mg PO BID [facility] PRN Reason: Protocol Stop: 05/16/17 16:59 Last Admin: 03/20/17 17:34 Dose: 500 mg Donepezil HCl (Aricept) 10 mg PO HS [facility] Stop: 05/16/17 20:59 Last Admin: 03/20/17 21:24 Dose: 10 mg Famotidine (Pepcid) 20 mg PO BID [facility] Stop: 05/16/17 08:59 Last Admin: 03/20/17 17:32 Dose: 20 mg Levetiracetam (Keppra) 500 mg PO BID [facility] Stop: 05/16/17 08:59 Last Admin: 03/20/17 17:32 Dose: 500 mg Lorazepam (Ativan) 0.5 mg PO Q4HR PRN; Protocol PRN Reason: Anxiety Stop: 04/16/17 00:19 Magnesium Hydroxide (Milk Of Magnesia) 30 ml PO HS PRN PRN Reason: Constipation Memantine (Namenda) 10 mg PO DAILY [facility] Stop: 05/16/17 08:59 Last Admin: 03/20/17 09:49 Dose: 10 mg Metformin HCl (Glucophage) 850 mg PO BIDWM [facility] Stop: 05/16/17 07:59 Last Admin: 03/20/17 17:30 Dose: 850 mg Mirtazapine (Remeron) 15 mg PO HS [facility] PRN Reason: Protocol Stop: 05/16/17 20:59 Last Admin: 03/20/17 21:24 Dose: 15 mg Miscellaneous (Pimavanserin Tartrate [Nuplazid]) 17 mg PO DAILY [facility] Stop: 05/16/17 08:59 Miscellaneous (Umeclidinium Brm/Vilanterol Tr [Anoro Ellipta 62.5-25 Mcg Inh]) 1 puff IH DAILY [facility] Stop: 05/16/17 08:59 Nitroglycerin (Nitrostat) 0.4 mg SL Q5MIN PRN PRN Reason: Chest Pain Stop: 05/16/17 00:24 Ondansetron HCl (Zofran Odt) 4 mg PO Q6H PRN PRN Reason: Nausea / Vomiting Pantoprazole Sodium (Protonix) 40 mg PO DAILY [facility] Stop: 05/17/17 11:59 Last Admin: 03/20/17 09:51 Dose: 40 mg Pregabalin (Lyrica) 75 mg PO BID [facility] Stop: 05/16/17 08:59 Last Admin: 03/20/17 17:30 Dose: 75 mg Zolpidem Tartrate (Ambien) 5 mg PO HS PRN PRN Reason: Insomnia Stop: 05/16/17 00:19 Last Admin: 03/19/17 21:09 Dose: 5 mg - Procedures Procedures: Procedures Procedure Code Date OTHER GROUP THERAPY 94.44 05/31/14 RECREATIONAL THERAPY 93.81 03/08/07 Assessment/Plan - Problem List Patient Problems: All Active Problems Agitation (Acute) R45.1 Depressive disorder (Acute) F32.9 Diabetes (Acute) E11.9 Hypertension (Acute) I10 Schizoaffective disorder (Acute) F25.9 - Assessment Assessment: * Likely chronic lymphocytic leukemia Follow Flowcytometry report Monitor cbc, IgG level Nutritional Asmnt/Malnutr-PDOC - Dietary Evaluation Malnutrition Findings (Please click <Entered> for more info): Nutritional Asmnt/Malnutrition Start: 03/17/17 13: 13 Text: Status: Complete Freq: Document 03/17/17 13:13 [facility] (Rec: 03/17/17 13:31 [facility] [id number]) Nutritional Asmnt/Malnutrition Patient General Information Nutritional Screening High Risk Diagnosis leukemia, anemia, schizophrenia, depression, bipolar, agitaion Pertinent Medical Hx/Surgical Hx HTN, DM, Leukemia, parkinson's disease, depression , schizophrenia Subjective Information Pt seen sitting on bed working on lunch. Pt stated good appetite, like the food. Current Diet Order/ Nutrition Support mech soft chopped, MARCIAL, CCHO Pertinent Medications glucophage, remeron, protonix Pertinent Labs 03/16 Na 130, K 4.5, Cl 98, BUN 13, Cr 0.7, Glucose 188, A1c 9.3 Nutritional Hx/Data Height 1.78 m Height (Calculated Centimeters) 177.8 Current Weight (lbs) 77.111 kg Weight (Calculated Kilograms) 77.1 Weight (Calculated Grams) 79420.7 [place] Body Weight 166 % [place] Body Weight 102 Body Mass Index (BMI) 24.3 Weight Status Approriate GI Symptoms GI Symptoms None Last BM 03/17 Difficult in: None Skin Integrity/Comment: intact Estimated Nutritional Goals BEE in Kcals: Using Current wt Calories/Kcals/Kg 25-30 Kcals Calculated 7525-9304 Protein: Using Current wt Protein g/k Protein Calculated 77 Fluid: ml 1925-2310ml (1ml/kcal) Nutritional Problem 1. Problem Problem altered nutrition related lab values Etiology hx of DM Signs/Symptoms: Glucose 188, A1c 9.3 Malnutrition Alert Protein-Calorie Malnutrition N/A Is there a minimum of two criteria No selected? Query Text:Check all the applicable criteria. A minimum of two criteria are recommended for diagnosis of either severe or non-severe malnutrition. Intervention/Recommendation Comments 1. Continue with current diet as ordered. Explained [facility] diet to pt. Pt receiptive, will follow it, no more question or concern. 2. Monitor PO intake, wt, labs and skin integrity 3. F/U as moderate risk in 3-5 days, 03/20-03/22 Expected Outcomes/Goals Expected Outcomes/Goals 1. PO intake to meet at least 75% of nutritional needs. 2. Wt stability, skin to remain intact, labs to improve
--- NOTE | 2017-03-21 16:32 | Progress Notes ---
DATE: 03/21/2017 SUBJECTIVE: Staff was spoken to. The patient is interviewed. Mood is noted to be irritable. Affect is constricted. Coping skills are noted to be poor. The patient's insight and judgment are noted to be impaired. Impulse control seems to be limited. Coping skills are noted to be limited. No side effects to the medications are noted. The patient has not been able to participate in any of the groups. ASSESSMENT: The patient is still depressed. PLAN: To continue the patient with the supportive therapy, encouraged the patient to verbalize the concerns rather than to act out. The patient is currently on the mirtazapine, Abilify, and valproic acid. JOB# [id number]
[2017-03-22] MEDS: Benztropine 1 MG TAB PO SCH (08:02)
[2017-03-22] MEDS: Pantoprazole 40 mg EC Tab PO SCH (08:02)
[2017-03-22] MEDS: Atorvastatin Calcium 10 MG TAB PO SCH (08:03)
[2017-03-22] MEDS ORDERED: Ipratropium Neb 0.5 mg/2.5 mL UD HHN SCH (13:00)
--- NOTE | 2017-03-22 14:43 | Progress Notes ---
DATE: 03/22/2017 SUBJECTIVE: Staff was spoken to. The patient is still depressed. The patient is stating that he does not want to go back to the previous placement because that place is not clean and he states that people ignored him and patient has been currently on Abilify and Depakote and is also on mirtazapine and has been able to tolerate the medications. Also, effective medications are noted. The patient's suicidal ideation is resolving, but patient has been having difficult time in choosing the place where he wants to go to stay. ASSESSMENT: The patient is still depressed. PLAN: To continue the patient with the above medications and follow the patient with the supportive therapy and request the pillowcase cutter to help the patient with the placement. JOB# [id number]
--- NOTE | 2017-03-22 19:11 | General Progress Note ---
Subjective - Review of Systems Service Date: 03/22/17 Objective - Results Result Diagrams: 03/21/17 07:10 03/16/17 19:59 Recent Labs: Laboratory Last Values WBC 46.8 Th/cmm (4.8-10.8) H* D 03/21/17 07:10 RBC 3.45 Mil/cmm (3.80-5.80) L 03/21/17 07:10 Hgb 10.1 gm/dL (12-16) L 03/21/17 07:10 Hct 29.9 % (41.0-60) L 03/21/17 07:10 MCV 86.7 fl (80-99) 03/21/17 07:10 MCH 29.2 pg (27.0-31.0) 03/21/17 07:10 MCHC Differential 33.7 pg (28.0-36.0) 03/21/17 07:10 RDW 16.0 % (11.5-20.0) 03/21/17 07:10 Plt Count 88 Th/cmm (150-400) L D 03/21/17 07:10 MPV 7.9 fl 03/21/17 07:10 Band Neutrophils % 0 % (0-10) 03/16/17 19:59 Neutrophils (Manual) 7 % (40-80) L 03/21/17 07:10 Lymphocytes 90 % (20-50) H 03/21/17 07:10 Monocytes 3 % (2-10) 03/21/17 07:10 Eosinophils 2 % (0-5) 03/16/17 19:59 Basophils 0 % (0-3) 03/16/17 19:59 Platelet Estimate SLIGHT DECREASED (NORMAL) 03/21/17 07:10 Platelet Morphology NORMAL (NORMAL) 03/16/17 19:59 Poikilocytosis 1+ 03/16/17 19:59 [place] Cells 1+ 03/16/17 19:59 Acanthocytes (Spur) 1+ 03/16/17 19:59 Schistocytes 1+ 03/16/17 19:59 RBC Morph Micro Appear ABNORMAL (NORMAL) 03/16/17 19:59 Sodium 130 mEq/L (136-145) L 03/16/17 19:59 Potassium 4.5 mEq/L (3.5-5.1) 03/16/17 19:59 Chloride 98 mEq/L (98-107) 03/16/17 19:59 Carbon Dioxide 24.1 mEq/L (21.0-31.0) 03/16/17 19:59 Anion Gap 12.4 (7.0-16.0) 03/16/17 19:59 BUN 13 mg/dL (7-25) 03/16/17 19:59 Creatinine 0.7 mg/dL (0.7-1.3) 03/16/17 19:59 Est GFR ( Amer) > 60.0 ml/min (>90) 03/16/17 19:59 Est GFR (Non-Af Amer) > 60.0 ml/min 03/16/17 19:59 BUN/Creatinine Ratio 18.6 03/16/17 19:59 Glucose 188 mg/dL (70-105) H 03/16/17 19:59 Hemoglobin A1c % 9.3 % (4.0-6.0) H 03/16/17 19:59 Whole Bld Lactic Acid 2.19 mmol/L (0.60-1.99) H* 03/16/17 22:50 Uric Acid 4.6 mg/dL (4.4-7.6) 03/18/17 16:47 Calcium 8.9 mg/dL (8.6-10.3) 03/16/17 19:59 TSH 2.98 uIU/ml (0.34-5.60) 03/16/17 19:59 Urine Source MIDSTREAM 03/16/17 19:25 Urine Color YELLOW 03/16/17 19:25 Urine Clarity CLEAR (CLEAR) 03/16/17 19:25 Urine pH 6.0 (4.6 - 8.0) 03/16/17 19:25 Ur Specific [place] >= 1.030 (1.005-1.030) 03/16/17 19:25 Urine Protein TRACE mg/dL (NEGATIVE) 03/16/17 19:25 Urine Glucose (UA) NEGATIVE mg/dL (NEGATIVE) 03/16/17 19:25 Urine Ketones TRACE mg/dL (NEGATIVE) 03/16/17 19:25 Urine Blood MODERATE (NEGATIVE) H 03/16/17 19:25 Urine Nitrate NEGATIVE (NEGATIVE) 03/16/17 19:25 Urine Bilirubin NEGATIVE (NEGATIVE) 03/16/17 19:25 Urine Urobilinogen 0.2 E.U./dL (0.2 - 1.0) 03/16/17 19:25 Ur Leukocyte Esterase NEGATIVE (NEGATIVE) 03/16/17 19:25 Urine RBC 5-10 /hpf (0-5) H 03/16/17 19:25 Urine WBC 0-2 /hpf (0-5) 03/16/17 19:25 Ur Epithelial Cells NONE SEEN /lpf (FEW) 03/16/17 19:25 Urine Bacteria NONE SEEN /hpf (NONE SEEN) 03/16/17 19:25 Urine Opiates Screen NEGATIVE (NEGATIVE) 03/16/17 19:25 Urine Methadone Screen NEGATIVE (NEGATIVE) 03/16/17 19:25 Ur Barbiturates Screen NEGATIVE (NEGATIVE) 03/16/17 19:25 Valproic Acid 75.1 ug/mL (50.0-100.0) 03/18/17 16:47 Ur Tricyclics Screen NEGATIVE (NEGATIVE) 03/16/17 19:25 Levetiracetam 26.1 ug/mL (10.0-40.0) 03/16/17 19:59 Ur Phencyclidine Scrn NEGATIVE (NEGATIVE) 03/16/17 19:25 Amphetamines Screen NEGATIVE (NEGATIVE) 03/16/17 19:25 U Methamphetamines Scrn NEGATIVE (NEGATIVE) 03/16/17 19:25 U Benzodiazepines Scrn NEGATIVE (NEGATIVE) 03/16/17 19:25 U Cocaine Metab Screen NEGATIVE (NEGATIVE) 03/16/17 19:25 U Cannabinoids Screen NEGATIVE (NEGATIVE) 03/16/17 19:25 Serum Immunofixation 15 mg/dL (20-172) L 03/21/17 07:10 - Physical Exam Vitals and I&O: Vital Signs Temp 98 F 03/22/17 17:13 Pulse 60 03/22/17 17:17 Resp 18 03/22/17 17:13 BP 126/58 03/22/17 17:17 Pulse Ox 100 03/22/17 17:13 Intake & Output 03/22/17 03/22/17 03/23/17 06:59 18:59 06:59 Intake Total 1000 Balance 1000 Intake: Oral 1000 Other: # Voids 3 # Bowel Movements 1 Stool Characteristics Liquid Brown Active Medications: Current Medications Acetaminophen (Tylenol) 650 mg PO Q4HR PRN PRN Reason: Mild Pain / Temp above 100 Stop: 05/16/17 00:19 Al Hydrox/Mg Hydrox/Simethicone (Maalox) 30 ml PO Q4HR PRN PRN Reason: GI DISTRESS Stop: 05/16/17 00:19 Albuterol Sulfate (Albuterol 2.5mg/3ml Neb Ud) 2.5 mg HHN Q4HRT PRN PRN Reason: Wheezing Stop: 05/18/17 10:59 Albuterol/Ipratropium (Duoneb Neb) 3 ml HHN Q6HRT ME[facility] Stop: 05/21/17 18:59 Aripiprazole (Abilify) 2 mg PO DAILY [facility] PRN Reason: Protocol Stop: 05/17/17 08:59 Last Admin: 03/22/17 08:04 Dose: 2 mg Aspirin (Ecotrin) 81 mg PO DAILY [facility] Stop: 05/16/17 08:59 Last Admin: 03/22/17 08:03 Dose: 81 mg Atorvastatin Calcium (Lipitor) 40 mg PO DAILY [facility] Stop: 05/16/17 08:59 Last Admin: 03/22/17 08:03 Dose: 40 mg Benazepril HCl (Lotensin) 5 mg PO DAILY [facility] Stop: 05/16/17 08:59 Last Admin: 03/22/17 08:03 Dose: 5 mg Benztropine Mesylate (Cogentin) 2 mg PO DAILY [facility] Stop: 05/16/17 08:59 Last Admin: 03/22/17 08:02 Dose: 2 mg Carvedilol (Coreg) 6.25 mg PO BID [facility] Stop: 05/16/17 08:59 Last Admin: 03/22/17 17:17 Dose: 6.25 mg Clopidogrel Bisulfate (Plavix) 75 mg PO DAILY [facility] Stop: 05/16/17 08:59 Last Admin: 03/22/17 08:03 Dose: 75 mg Divalproex Sodium (Depakote Dr) 500 mg PO BID [facility] PRN Reason: Protocol Stop: 05/16/17 16:59 Last Admin: 03/22/17 17:17 Dose: 500 mg Donepezil HCl (Aricept) 10 mg PO HS [facility] Stop: 05/16/17 20:59 Last Admin: 03/21/17 21:25 Dose: 10 mg Famotidine (Pepcid) 20 mg PO BID [facility] Stop: 05/16/17 08:59 Last Admin: 03/22/17 17:17 Dose: 20 mg Levetiracetam (Keppra) 500 mg PO BID [facility] Stop: 05/16/17 08:59 Last Admin: 03/22/17 17:17 Dose: 500 mg Lorazepam (Ativan) 0.5 mg PO Q4HR PRN; Protocol PRN Reason: Anxiety Stop: 04/16/17 00:19 Magnesium Hydroxide (Milk Of Magnesia) 30 ml PO HS PRN PRN Reason: Constipation Memantine (Namenda) 10 mg PO DAILY [facility] Stop: 05/16/17 08:59 Last Admin: 03/22/17 08:02 Dose: 10 mg Metformin HCl (Glucophage) 850 mg PO BIDWM [facility] Stop: 05/16/17 07:59 Last Admin: 03/22/17 17:17 Dose: 850 mg Mirtazapine (Remeron) 15 mg PO HS [facility] PRN Reason: Protocol Stop: 05/16/17 20:59 Last Admin: 03/21/17 21:24 Dose: 15 mg Miscellaneous (Pimavanserin Tartrate [Nuplazid]) 17 mg PO DAILY [facility] Stop: 05/16/17 08:59 Nitroglycerin (Nitrostat) 0.4 mg SL Q5MIN PRN PRN Reason: Chest Pain Stop: 05/16/17 00:24 Ondansetron HCl (Zofran Odt) 4 mg PO Q6H PRN PRN Reason: Nausea / Vomiting Pantoprazole Sodium (Protonix) 40 mg PO DAILY [facility] Stop: 05/17/17 11:59 Last Admin: 03/22/17 08:02 Dose: 40 mg Pregabalin (Lyrica) 75 mg PO BID [facility] Stop: 05/16/17 08:59 Last Admin: 03/22/17 17:17 Dose: 75 mg Zolpidem Tartrate (Ambien) 5 mg PO HS PRN PRN Reason: Insomnia Stop: 05/16/17 00:19 Last Admin: 03/19/17 21:09 Dose: 5 mg - Procedures Procedures: Procedures Procedure Code Date OTHER GROUP THERAPY 94.44 05/31/14 RECREATIONAL THERAPY 93.81 03/08/07 Assessment/Plan - Problem List Patient Problems: All Active Problems Agitation (Acute) R45.1 Depressive disorder (Acute) F32.9 Diabetes (Acute) E11.9 Hypertension (Acute) I10 Schizoaffective disorder (Acute) F25.9 - Assessment Assessment: * Likely chronic lymphocytic leukemia * IgG = 632 Follow Flowcytometry report Monitor cbc Nutritional Asmnt/Malnutr-PDOC - Dietary Evaluation Malnutrition Findings (Please click <Entered> for more info): Nutritional Asmnt/Malnutrition Start: 03/17/17 13: 13 Text: Status: Complete Freq: Document 03/17/17 13:13 [facility] (Rec: 03/17/17 13:31 [email or web address]) Nutritional Asmnt/Malnutrition Patient General Information Nutritional Screening High Risk Diagnosis leukemia, anemia, schizophrenia, depression, bipolar, agitaion Pertinent Medical Hx/Surgical Hx HTN, DM, Leukemia, parkinson's disease, depression , schizophrenia Subjective Information Pt seen sitting on bed working on lunch. Pt stated good appetite, like the food. Current Diet Order/ Nutrition Support mech soft chopped, MARCIAL, CCHO Pertinent Medications glucophage, remeron, protonix Pertinent Labs 03/16 Na 130, K 4.5, Cl 98, BUN 13, Cr 0.7, Glucose 188, A1c 9.3 Nutritional Hx/Data Height 1.78 m Height (Calculated Centimeters) 177.8 Current Weight (lbs) 77.111 kg Weight (Calculated Kilograms) 77.1 Weight (Calculated Grams) 81251.7 [place] Body Weight 166 % [place] Body Weight 102 Body Mass Index (BMI) 24.3 Weight Status Approriate GI Symptoms GI Symptoms None Last BM 03/17 Difficult in: None Skin Integrity/Comment: intact Estimated Nutritional Goals BEE in Kcals: Using Current wt Calories/Kcals/Kg 25-30 Kcals Calculated 9036-2869 Protein: Using Current wt Protein g/k Protein Calculated 77 Fluid: ml 1925-2310ml (1ml/kcal) Nutritional Problem 1. Problem Problem altered nutrition related lab values Etiology hx of DM Signs/Symptoms: Glucose 188, A1c 9.3 Malnutrition Alert Protein-Calorie Malnutrition N/A Is there a minimum of two criteria No selected? Query Text:Check all the applicable criteria. A minimum of two criteria are recommended for diagnosis of either severe or non-severe malnutrition. Intervention/Recommendation Comments 1. Continue with current diet as ordered. Explained [facility] diet to pt. Pt receiptive, will follow it, no more question or concern. 2. Monitor PO intake, wt, labs and skin integrity 3. F/U as moderate risk in 3-5 days, 03/20-03/22 Expected Outcomes/Goals Expected Outcomes/Goals 1. PO intake to meet at least 75% of nutritional needs. 2. Wt stability, skin to remain intact, labs to improve
[2017-03-22] MEDS: Albuterol/Ipratropium Neb 3 ML AERS HHN SCH (19:41)
[2017-03-23] MEDS: Albuterol/Ipratropium Neb 3 ML AERS HHN SCH ×4 (00:50→20:28)
[2017-03-23] MEDS: Atorvastatin Calcium 10 MG TAB PO SCH (08:04)
[2017-03-23] MEDS: Benztropine 1 MG TAB PO SCH (08:05)
[2017-03-23] MEDS: Pantoprazole 40 mg EC Tab PO SCH (08:05)
--- NOTE | 2017-03-23 10:18 | General Progress Note ---
Subjective - Review of Systems Service Date: 03/23/17 Objective - Results Result Diagrams: 03/21/17 07:10 03/16/17 19:59 Recent Labs: Laboratory Last Values WBC 46.8 Th/cmm (4.8-10.8) H* D 03/21/17 07:10 RBC 3.45 Mil/cmm (3.80-5.80) L 03/21/17 07:10 Hgb 10.1 gm/dL (12-16) L 03/21/17 07:10 Hct 29.9 % (41.0-60) L 03/21/17 07:10 MCV 86.7 fl (80-99) 03/21/17 07:10 MCH 29.2 pg (27.0-31.0) 03/21/17 07:10 MCHC Differential 33.7 pg (28.0-36.0) 03/21/17 07:10 RDW 16.0 % (11.5-20.0) 03/21/17 07:10 Plt Count 88 Th/cmm (150-400) L D 03/21/17 07:10 MPV 7.9 fl 03/21/17 07:10 Band Neutrophils % 0 % (0-10) 03/16/17 19:59 Neutrophils (Manual) 7 % (40-80) L 03/21/17 07:10 Lymphocytes 90 % (20-50) H 03/21/17 07:10 Monocytes 3 % (2-10) 03/21/17 07:10 Eosinophils 2 % (0-5) 03/16/17 19:59 Basophils 0 % (0-3) 03/16/17 19:59 Platelet Estimate SLIGHT DECREASED (NORMAL) 03/21/17 07:10 Platelet Morphology NORMAL (NORMAL) 03/16/17 19:59 Poikilocytosis 1+ 03/16/17 19:59 [place] Cells 1+ 03/16/17 19:59 Acanthocytes (Spur) 1+ 03/16/17 19:59 Schistocytes 1+ 03/16/17 19:59 RBC Morph Micro Appear ABNORMAL (NORMAL) 03/16/17 19:59 Sodium 130 mEq/L (136-145) L 03/16/17 19:59 Potassium 4.5 mEq/L (3.5-5.1) 03/16/17 19:59 Chloride 98 mEq/L (98-107) 03/16/17 19:59 Carbon Dioxide 24.1 mEq/L (21.0-31.0) 03/16/17 19:59 Anion Gap 12.4 (7.0-16.0) 03/16/17 19:59 BUN 13 mg/dL (7-25) 03/16/17 19:59 Creatinine 0.7 mg/dL (0.7-1.3) 03/16/17 19:59 Est GFR ( Amer) > 60.0 ml/min (>90) 03/16/17 19:59 Est GFR (Non-Af Amer) > 60.0 ml/min 03/16/17 19:59 BUN/Creatinine Ratio 18.6 03/16/17 19:59 Glucose 188 mg/dL (70-105) H 03/16/17 19:59 Hemoglobin A1c % 9.3 % (4.0-6.0) H 03/16/17 19:59 Whole Bld Lactic Acid 2.19 mmol/L (0.60-1.99) H* 03/16/17 22:50 Uric Acid 4.6 mg/dL (4.4-7.6) 03/18/17 16:47 Calcium 8.9 mg/dL (8.6-10.3) 03/16/17 19:59 TSH 2.98 uIU/ml (0.34-5.60) 03/16/17 19:59 Urine Source MIDSTREAM 03/16/17 19:25 Urine Color YELLOW 03/16/17 19:25 Urine Clarity CLEAR (CLEAR) 03/16/17 19:25 Urine pH 6.0 (4.6 - 8.0) 03/16/17 19:25 Ur Specific [place] >= 1.030 (1.005-1.030) 03/16/17 19:25 Urine Protein TRACE mg/dL (NEGATIVE) 03/16/17 19:25 Urine Glucose (UA) NEGATIVE mg/dL (NEGATIVE) 03/16/17 19:25 Urine Ketones TRACE mg/dL (NEGATIVE) 03/16/17 19:25 Urine Blood MODERATE (NEGATIVE) H 03/16/17 19:25 Urine Nitrate NEGATIVE (NEGATIVE) 03/16/17 19:25 Urine Bilirubin NEGATIVE (NEGATIVE) 03/16/17 19:25 Urine Urobilinogen 0.2 E.U./dL (0.2 - 1.0) 03/16/17 19:25 Ur Leukocyte Esterase NEGATIVE (NEGATIVE) 03/16/17 19:25 Urine RBC 5-10 /hpf (0-5) H 03/16/17 19:25 Urine WBC 0-2 /hpf (0-5) 03/16/17 19:25 Ur Epithelial Cells NONE SEEN /lpf (FEW) 03/16/17 19:25 Urine Bacteria NONE SEEN /hpf (NONE SEEN) 03/16/17 19:25 Urine Opiates Screen NEGATIVE (NEGATIVE) 03/16/17 19:25 Urine Methadone Screen NEGATIVE (NEGATIVE) 03/16/17 19:25 Ur Barbiturates Screen NEGATIVE (NEGATIVE) 03/16/17 19:25 Valproic Acid 75.1 ug/mL (50.0-100.0) 03/18/17 16:47 Ur Tricyclics Screen NEGATIVE (NEGATIVE) 03/16/17 19:25 Levetiracetam 26.1 ug/mL (10.0-40.0) 03/16/17 19:59 Ur Phencyclidine Scrn NEGATIVE (NEGATIVE) 03/16/17 19:25 Amphetamines Screen NEGATIVE (NEGATIVE) 03/16/17 19:25 U Methamphetamines Scrn NEGATIVE (NEGATIVE) 03/16/17 19:25 U Benzodiazepines Scrn NEGATIVE (NEGATIVE) 03/16/17 19:25 U Cocaine Metab Screen NEGATIVE (NEGATIVE) 03/16/17 19:25 U Cannabinoids Screen NEGATIVE (NEGATIVE) 03/16/17 19:25 Serum Immunofixation 15 mg/dL (20-172) L 03/21/17 07:10 - Physical Exam Vitals and I&O: Vital Signs Temp 98.5 F 03/23/17 05:32 Pulse 79 03/23/17 08:07 Resp 18 03/23/17 07:30 BP 117/64 03/23/17 08:07 Pulse Ox 97 03/23/17 07:30 Intake & Output 03/22/17 03/23/17 03/23/17 18:59 06:59 18:59 Intake Total 1000 Balance 1000 Intake: Oral 1000 Other: # Voids 3 # Bowel Movements 1 Stool Characteristics Liquid Liquid Brown Brown Active Medications: Current Medications Acetaminophen (Tylenol) 650 mg PO Q4HR PRN PRN Reason: Mild Pain / Temp above 100 Stop: 05/16/17 00:19 Al Hydrox/Mg Hydrox/Simethicone (Maalox) 30 ml PO Q4HR PRN PRN Reason: GI DISTRESS Stop: 05/16/17 00:19 Albuterol Sulfate (Albuterol 2.5mg/3ml Neb Ud) 2.5 mg HHN Q4HRT PRN PRN Reason: Wheezing Stop: 05/18/17 10:59 Albuterol/Ipratropium (Duoneb Neb) 3 ml HHN Q6HRT ME[facility] Stop: 05/21/17 18:59 Last Admin: 03/23/17 07:29 Dose: 3 ml Aripiprazole (Abilify) 2 mg PO DAILY [facility] PRN Reason: Protocol Stop: 05/17/17 08:59 Last Admin: 03/23/17 08:05 Dose: 2 mg Aspirin (Ecotrin) 81 mg PO DAILY [facility] Stop: 05/16/17 08:59 Last Admin: 03/23/17 08:05 Dose: 81 mg Atorvastatin Calcium (Lipitor) 40 mg PO DAILY [facility] Stop: 05/16/17 08:59 Last Admin: 03/23/17 08:04 Dose: 40 mg Benazepril HCl (Lotensin) 5 mg PO DAILY [facility] Stop: 05/16/17 08:59 Last Admin: 03/23/17 08:06 Dose: 5 mg Benztropine Mesylate (Cogentin) 2 mg PO DAILY [facility] Stop: 05/16/17 08:59 Last Admin: 03/23/17 08:05 Dose: 2 mg Carvedilol (Coreg) 6.25 mg PO BID [facility] Stop: 05/16/17 08:59 Last Admin: 03/23/17 08:07 Dose: 6.25 mg Clopidogrel Bisulfate (Plavix) 75 mg PO DAILY [facility] Stop: 05/16/17 08:59 Last Admin: 03/23/17 08:05 Dose: 75 mg Divalproex Sodium (Depakote Dr) 500 mg PO BID [facility] PRN Reason: Protocol Stop: 05/16/17 16:59 Last Admin: 03/23/17 08:04 Dose: 500 mg Donepezil HCl (Aricept) 10 mg PO HS [facility] Stop: 05/16/17 20:59 Last Admin: 03/22/17 20:59 Dose: 10 mg Famotidine (Pepcid) 20 mg PO BID [facility] Stop: 05/16/17 08:59 Last Admin: 03/23/17 08:05 Dose: 20 mg Levetiracetam (Keppra) 500 mg PO BID [facility] Stop: 05/16/17 08:59 Last Admin: 03/23/17 08:05 Dose: 500 mg Lorazepam (Ativan) 0.5 mg PO Q4HR PRN; Protocol PRN Reason: Anxiety Stop: 04/16/17 00:19 Magnesium Hydroxide (Milk Of Magnesia) 30 ml PO HS PRN PRN Reason: Constipation Memantine (Namenda) 10 mg PO DAILY [facility] Stop: 05/16/17 08:59 Last Admin: 03/23/17 08:05 Dose: 10 mg Metformin HCl (Glucophage) 850 mg PO BIDWM [facility] Stop: 05/16/17 07:59 Last Admin: 03/23/17 07:47 Dose: 850 mg Mirtazapine (Remeron) 15 mg PO HS [facility] PRN Reason: Protocol Stop: 05/16/17 20:59 Last Admin: 03/22/17 21:03 Dose: 15 mg Miscellaneous (Pimavanserin Tartrate [Nuplazid]) 17 mg PO DAILY [facility] Stop: 05/16/17 08:59 Nitroglycerin (Nitrostat) 0.4 mg SL Q5MIN PRN PRN Reason: Chest Pain Stop: 05/16/17 00:24 Ondansetron HCl (Zofran Odt) 4 mg PO Q6H PRN PRN Reason: Nausea / Vomiting Pantoprazole Sodium (Protonix) 40 mg PO DAILY [facility] Stop: 05/17/17 11:59 Last Admin: 03/23/17 08:05 Dose: 40 mg Pregabalin (Lyrica) 75 mg PO BID [facility] Stop: 05/16/17 08:59 Last Admin: 03/23/17 08:05 Dose: 75 mg Zolpidem Tartrate (Ambien) 5 mg PO HS PRN PRN Reason: Insomnia Stop: 05/16/17 00:19 Last Admin: 03/19/17 21:09 Dose: 5 mg - Procedures Procedures: Procedures Procedure Code Date OTHER GROUP THERAPY 94.44 05/31/14 RECREATIONAL THERAPY 93.81 03/08/07 Assessment/Plan - Problem List Patient Problems: All Active Problems Agitation (Acute) R45.1 Depressive disorder (Acute) F32.9 Diabetes (Acute) E11.9 Hypertension (Acute) I10 Schizoaffective disorder (Acute) F25.9 - Assessment Assessment: * Likely chronic lymphocytic leukemia * IgG = 632 Follow Flowcytometry report Monitor cbc Nutritional Asmnt/Malnutr-PDOC - Dietary Evaluation Malnutrition Findings (Please click <Entered> for more info): Nutritional Asmnt/Malnutrition Start: 03/17/17 13: 13 Text: Status: Complete Freq: Document 03/17/17 13:13 PAUL[facility] (Rec: 03/17/17 13:31 [email or web address]) Nutritional Asmnt/Malnutrition Patient General Information Nutritional Screening High Risk Diagnosis leukemia, anemia, schizophrenia, depression, bipolar, agitaion Pertinent Medical Hx/Surgical Hx HTN, DM, Leukemia, parkinson's disease, depression , schizophrenia Subjective Information Pt seen sitting on bed working on lunch. Pt stated good appetite, like the food. Current Diet Order/ Nutrition Support [facility] soft chopped, MARCIAL, CCHO Pertinent Medications glucophage, remeron, protonix Pertinent Labs 03/16 Na 130, K 4.5, Cl 98, BUN 13, Cr 0.7, Glucose 188, A1c 9.3 Nutritional Hx/Data Height 1.78 m Height (Calculated Centimeters) 177.8 Current Weight (lbs) 77.111 kg Weight (Calculated Kilograms) 77.1 Weight (Calculated Grams) 72027.7 [place] Body Weight 166 % [place] Body Weight 102 Body Mass Index (BMI) 24.3 Weight Status Approriate GI Symptoms GI Symptoms None Last BM 03/17 Difficult in: None Skin Integrity/Comment: intact Estimated Nutritional Goals BEE in Kcals: Using Current wt Calories/Kcals/Kg 25-30 Kcals Calculated 7430-7318 Protein: Using Current wt Protein g/k Protein Calculated 77 Fluid: ml 1925-2310ml (1ml/kcal) Nutritional Problem 1. Problem Problem altered nutrition related lab values Etiology hx of DM Signs/Symptoms: Glucose 188, A1c 9.3 Malnutrition Alert Protein-Calorie Malnutrition N/A Is there a minimum of two criteria No selected? Query Text:Check all the applicable criteria. A minimum of two criteria are recommended for diagnosis of either severe or non-severe malnutrition. Intervention/Recommendation Comments 1. Continue with current diet as ordered. Explained [facility] diet to pt. Pt receiptive, will follow it, no more question or concern. 2. Monitor PO intake, wt, labs and skin integrity 3. F/U as moderate risk in 3-5 days, 03/20-03/22 Expected Outcomes/Goals Expected Outcomes/Goals 1. PO intake to meet at least 75% of nutritional needs. 2. Wt stability, skin to remain intact, labs to improve
--- NOTE | 2017-03-23 13:00 | Progress Notes ---
DATE: 03/23/2017 SUBJECTIVE: Staff was spoken to. The patient is interviewed. Mood is noted to be anxious. Affect is appropriate. The patient is not suicidal or homicidal today. The patient denies any hallucinations or delusions are noted. The patient is motivated for treatment. The patient, however, is very weak and has been having difficult time to ambulate and hence the patient is suggested to go to a correction facility and he is agreeing. [facility] has been accepting the patient and hence the patient is going to be discharged today for followup over there. ASSESSMENT: The patient is stabilizing. PLAN: To discharge the patient today for followup. JOB# [id number]
[2017-03-24] MEDS: Albuterol/Ipratropium Neb 3 ML AERS HHN SCH ×3 (01:26→13:46)
--- NOTE | 2017-03-24 03:25 | Progress Notes ---
DATE: 03/23/2017 Staff was spoken to. The patient is interviewed. Mood is noted to be anxious. Affect is appropriate. Not suicidal or homicidal. Insight and judgment are noted to be improving. Impulse control seems to be fair. Coping skills are also noted to be fair. No side effects to medications. JOB# [id number]
[2017-03-24] MEDS: Benztropine 1 MG TAB PO SCH (08:43)
[2017-03-24] MEDS: Pantoprazole 40 mg EC Tab PO SCH (08:44)
[2017-03-24] MEDS: Atorvastatin Calcium 10 MG TAB PO SCH (08:45)
--- NOTE | 2017-03-24 16:59 | Progress Notes ---
DATE: 03/24/2017 SUBJECTIVE: Staff was spoken to. The patient is interviewed. Mood is noted to be depressed. Affect is constricted. The patient is stating that he is frustrated that he is not able to get out of here. The patient is reported to have been scheduled to go to [facility] and they are not willing to accept the patient and hence his managers have been looking for different options at this time. ASSESSMENT: The patient is still depressed. PLAN: To continue the patient with the supportive therapy, encouraged the patient to verbalize the concerns. JOB# [id number]
--- NOTE | 2017-04-02 16:40 | Discharge Summary ---
DATE OF DISCHARGE: 03/24/2017 IDENTIFYING DATA: The patient is a 71-year-old male, resident of [facility]. JUSTIFICATION OF HOSPITALIZATION: The patient is admitted on a voluntary basis in view of his depression. CHIEF COMPLAINT: "I'm feeling depressed, I do not know what to do." DIAGNOSES AT THE TIME OF ADMISSION: AXIS I: Schizoaffective disorder. AXIS II: None. AXIS III: As per Dr. Celis. HISTORY OF PRESENT ILLNESS: Please refer to the 03/17/2017 dictation done by me. Physical examination was done by Dr. Celis and is noted to be significant for hypertension, congestive heart failure, coronary artery disease, history of CVA, peptic ulcer disease, diabetes mellitus, seizure disorder. HOSPITAL COURSE AND RESPONSE TO TREATMENT: The patient has been closely monitored on the inpatient unit, provided with supportive psychotherapy. The patient has been encouraged to participate in groups and verbalize the concerns. The patient has been given the Depakote 500 mg twice a day and the patient has been given 15 mg of mirtazapine at night time to help her with the insomnia and the patient also has been given the aripiprazole, which was given 2 mg as an augmenter to the antidepressant effect. The patient has been encouraged to participate in the groups and verbalize the concerns and the patient started to do fairly well and patient was finally discharged on 03/24/2017 to be followed up at [facility] in [place]. MENTAL STATUS EXAMINATION: At the time of discharge, the patient was anxious. Affect is appropriate. Not suicidal or homicidal. Insight and judgment are improving. Impulse control seems to be fair. Coping skills are also noted to be fair. The patient is able to verbalize the concerns rather than to act out at the time of discharge. CONDITION: At the time of discharge noted to be stable. DIAGNOSES AT THE TIME OF DISCHARGE: AXIS I: Schizoaffective disorder. AXIS II: None. AXIS III: As per Dr. Celis. AFTERCARE PLAN: [facility] basis. JOB# [id number]
== END 2017-03-24 18:00 | DRG 885 ==
LOC: ER 19:05 → GERO 20:30
PROVIDERS: ADMIT Psychiatry & Neurology Psychiatry; ATTEND Psychiatry & Neurology Psychiatry
DX: F25.9 Schizoaffective disorder, unspecified (principal); G20 Parkinson's disease; C95.90 Leukemia, unspecified not having achieved remission; G35 Multiple sclerosis; E11.9 Type 2 diabetes mellitus without complications; I11.0 Hypertensive heart disease with heart failure; F29 Unspecified psychosis not due to a substance or known physiological condition; I50.9 Heart failure, unspecified; F31.30 Bipolar disorder, current episode depressed, mild or moderate severity, unspecified; D64.9 Anemia, unspecified; G40.909 Epilepsy, unspecified, not intractable, without status epilepticus; K27.9 Peptic ulcer, site unspecified, unspecified as acute or chronic, without hemorrhage or perforation; M19.90 Unspecified osteoarthritis, unspecified site; I25.10 Atherosclerotic heart disease of native coronary artery without angina pectoris; Z82.49 Family history of ischemic heart disease and other diseases of the circulatory system; Z83.3 Family history of diabetes mellitus; Z86.73 Personal history of transient ischemic attack (TIA), and cerebral infarction without residual deficits
CPT/HCPCS: 36415-UA; 80048-TC; 80164-TC; 80299-90; 80307; 81001-TC; 82784-90; 83036-90; 83605; 84443-TC; 84550-TC; 85007-TC; 85027-TC; 87086-90; 88189-90; 90899; 93005; 94640; 94760; G0410; Z7610